=== PATIENT | male | born 1970 | race American Indian/Alaskan Native ===

== ENCOUNTER 2018-10-21 03:36 | Emergency (ER) | payer OTHER ==
[2018-10-21] MEDS ORDERED: NORVASC ONE (04:09)
[2018-10-21] MEDS ORDERED: ZESTRIL ONE (04:09)
[2018-10-21] MEDS ORDERED: NORVASC PO ONE (04:10)
[2018-10-21] MEDS ORDERED: ZESTRIL PO ONE (04:11)
[2018-10-21] MEDS ORDERED: THERMAZENE 50 GRAM TP ONE (04:45)
[2018-10-21] MEDS ORDERED: XYLOCAINE 1% MPF 5 mL INFILTRATI ONE (04:45)
[2018-10-21] MEDS ORDERED: ROCEPHIN IM ONE (04:45)
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
[2018-10-22 18:15] VITALS: BP 161/90
== END 2018-10-21 06:14 | disposition home or self-care (01) ==
LOC: ED 03:36
DX: T24.231A Burn of second degree of right lower leg, initial encounter (principal); I10 Essential (primary) hypertension; E11.9 Type 2 diabetes mellitus without complications; X15.8XXA Contact with other hot household appliances, initial encounter; Y93.89 Activity, other specified; Y92.89 Other specified places as the place of occurrence of the external cause; Y99.8 Other external cause status
CPT/HCPCS: 16020; 96372; 99282; J0696